=== PATIENT | male | born 1965 | race Caucasian/White ===

== ENCOUNTER 2020-04-23 13:16 | Emergency (ER) | payer BC, SELFPAY ==
[2020-04-23 13:17] VITALS: BP 130/94; PULSE 85; RESP 16; TEMP 36.8; O2SAT 98; BMI 30.4
[2020-04-23 13:19] VITALS: BMI 30.4
--- NOTE | 2020-04-23 13:20 | XR_ITS ---
PROCEDURE: XR HUMERUS LT CLINICAL INDICATION: injury Posttraumatic pain COMPARISON: No exams were available for comparison FINDINGS: No fracture or dislocation. No lytic or blastic change. There is normal mineralization. The joint spaces are well-preserved. No significant degenerative/arthritic changes. No erosive changes evident. Other findings:None. IMPRESSION: No acute findings. Dictated by: Chato Navarro MD 04/23/2020 15:01 Chato Navarro MD in [place] 04/23/2020 15:01
--- NOTE | 2020-04-23 13:20 | XR_ITS ---
PROCEDURE: XR HAND LT MIN 3V CLINICAL INDICATION: injury Posttraumatic pain COMPARISON: No exams were available for comparison FINDINGS: There is an oblique fracture involving the distal aspect of the 2nd metacarpal at the metaphyseal diaphyseal junction. There is some soft tissue gas lateral to this region suggesting an fracture. In addition, there is a comminuted fracture involving the distal shaft of the proximal phalanx of the with mild distraction of the fracture fragments by 4 mm and mild dorsal displacement of the distal fracture fragment by 4 mm. There is a small foreign body in the thenar eminence dorsally measuring 3 mm. The joint spaces are well-preserved. No significant degenerative/arthritic changes. No erosive changes evident. Other findings:None. IMPRESSION: Comminuted oblique nondisplaced fracture of the distal aspect of the 2nd metacarpal with comminuted mildly displaced transverse fracture of the distal aspect of the proximal phalanx of the thumb with soft tissue gas suggesting open fractures and with a foreign body dorsally at the thenar eminence Dictated by: Chato Navarro MD 04/23/2020 15:10 Chato Navarro MD in [place] 04/23/2020 15:10
--- NOTE | 2020-04-23 13:20 | XR_ITS ---
PROCEDURE: XR FOREARM LT 2V CLINICAL INDICATION: injury Posttraumatic pain COMPARISON: No exams were available for comparison FINDINGS: There is a well-circumscribed lucency at the base of the ulnar styloid process consistent with either an old ununited fracture or accessory center of ossification. No acute fracture or dislocation evident. Other findings:None. IMPRESSION: No acute findings. Dictated by: Chato Navarro MD 04/23/2020 15:06 Chato Navarro MD in [place] 04/23/2020 15:06
--- NOTE | 2020-04-23 13:20 | XR_ITS ---
PROCEDURE: XR SHOULDER LT MIN 2V CLINICAL INDICATION: injury Posttraumatic pain COMPARISON: No exams were available for comparison FINDINGS: No fracture or dislocation. No lytic or blastic change. There is normal mineralization. Minimal osteoarthritic change of the glenohumeral joint. There appears to be old left 2nd 3rd and 4th rib fracture. Other findings:None. IMPRESSION: No acute findings. Dictated by: Chato Navarro MD 04/23/2020 15:03 Chato Navarro MD in [place] 04/23/2020 15:03
--- NOTE | 2020-04-23 13:35 | HMH.EDGENADL ---
ED Disposition Clinical Impression: Fracture of thumb, left, open Qualifiers: Encounter type: initial encounter Phalanx: proximal Fracture alignment: displaced Qualified Code(s): S62.512B - Displaced fracture of proximal phalanx of left thumb, initial encounter for open fracture First metacarpal bone fracture Qualifiers: Encounter type: initial encounter Fracture type: closed Metacarpal location: other portion of metacarpal Fracture alignment: nondisplaced Laterality: left Qualified Code(s): S62.292A - Other fracture of first metacarpal bone, left hand, initial encounter for closed fracture Disposition: Home, Self-Care Condition on Discharge: Fair Instructions: DI for Finger Fracture Additional Instructions: You have been evaluated for an open thumb fracture and metacarpal fracture. Please keep splint clean and dry and in place. Take Kelfex as prescribed. Take Tylenol for pain. Lincoln for extreme pain. Follow-up with Dr. Saldana at the [facility] plastics hand surgery clinic on Saturday. Report to the office at 8 AM. Return to the emergency department if you have any new or worsening pain, numbness or tingling in your fingers. [address], [place] [id number] Call [phone] Call [phone] Saturday - Saturday: 8 a.m. - 5 p.m. Prescriptions: cephALEXin [cephALEXin 500mg capsule*] 500 mg PO Q6H 5 Days #20 cap Transmission Status: Pending to [id number] Referrals: PCP,No [Primary Care Provider] - Time of Disposition: 18:05 - Critical Care Critical Care Time: No Attestation: On , the high probability of a clinically significant, sudden or life threatening deterioration of the following system(s) required my full and direct attention, intervention and personal management. The time I documented below is in addition to time spent performing reported procedures but includes the following listed in this critical care notation. Medical Decision Making - Medical Records Medical records reviewed: Yes: I reviewed the patient's medical records. - Tom Inquiry Pt receiving controlled substance: Yes Tom was queried for this patient: No Reason not queried -: Emergent pt cond-no time Risks and benefits of using a controlled substance: were discussed with pt by me Vital Signs: 04/23/20 13:17 04/23/20 14:08 04/23/20 14:47 Temperature 98.2 F Temperature Source Oral Pulse Rate Pulse Rate [Right] 85 73 86 Respiratory Rate 16 16 16 Blood Pressure Blood Pressure [Right Arm] 130/94 H 113/70 Blood Pressure Mean [Right Arm] 106 84 Blood Pressure Source Blood Pressure Source [Right Arm] Automatic Cuff Automatic Cuff Blood Pressure Position Blood Pressure Position [Right Arm] Sitting Sitting 02 Sat by Pulse Oximetry 98 98 96 Oxygen Delivery Method Room Air Room Air Room Air 04/23/20 15:48 04/23/20 17:37 Temperature 98.5 F Temperature Source Oral Pulse Rate 70 Pulse Rate [Right] 82 Respiratory Rate 16 Blood Pressure 120/72 Blood Pressure [Right Arm] 125/85 Blood Pressure Mean [Right Arm] 98 Blood Pressure Source Automatic Cuff Blood Pressure Source [Right Arm] Automatic Cuff Blood Pressure Position Sitting Blood Pressure Position [Right Arm] Supine 02 Sat by Pulse Oximetry 95 Oxygen Delivery Method Room Air Room Air - Lab Data Lab Results 04/23/20 13:23: WBC 11.9 H, RBC 4.61, Hgb 14.4, Hct 41.9 L, MCV 90.9, MCH 31.2, MCHC 34.3, RDW 13.1, Plt Count 401, MPV 9.7, Neut % (Auto) 44.9, Lymph % (Auto) 47.6, Collin % (Auto) 5.8, Eos % (Auto) 1.1, Baso % (Auto) 0.7, Neut # (Auto) 5.3, Lymph # (Auto) 5.6 H, Collin # (Auto) 0.7, Eos # (Auto) 0.1, Baso # (Auto) 0.1 04/23/20 13:23: Sodium 135 L, Potassium 4.0, Chloride 102, Carbon Dioxide 23, Anion Gap 14.0, BUN 11, Creatinine 0.90, Estimated Creat Clear 119, Estimated GFR 88, Est GFR ( Amer) 106, Glucose 279 H, Calcium 9.6, Total Bilirubin 0.7, AST 261 H, ALT 376 H*, Alkaline
[2020-04-23 14:08] VITALS: PULSE 73; RESP 16; O2SAT 98
[2020-04-23 14:47] VITALS: BP 113/70; PULSE 86; RESP 16; O2SAT 96
--- NOTE | 2020-04-23 15:21 | XR_ITS ---
PROCEDURE: XR CHEST PORTABLE CLINICAL HISTORY: pre-op COPD, smoker COMPARISON: No exams were available for comparison FINDINGS: The cardiomediastinal silhouette and pulmonary vascularity are within normal limits. There is slight increased density in the left midlung possibly due to summation. Upright PA and lateral chest may confirm. Cannot exclude underlying parenchymal disease. No acute bony abnormalities. IMPRESSION: Patchy density left midlung which could be due to artifact or mild atelectasis or infiltrate Dictated by: Chato Navarro MD 04/23/2020 22:21 Chato Navarro MD in [place] 04/23/2020 22:21
--- NOTE | 2020-04-23 15:22 | PC.NURSE ---
Dr. Bernardino roldan
[2020-04-23 15:26] LABS: Basophils # 0.1 K/mm3 (0-0.2); Basophils % 0.7 % (0.1-2.0); Eosinophils # 0.1 K/mm3 (0.0-0.4); Eosinophils % 1.1 % (0.1-12.0); Hematocrit 41.9 % (42.0-52.0); Hemoglobin 14.4 g/dL (14.1-18.0); Lymphocytes # 5.6 K/mm3 (0.7-4.5); Lymphocytes % 47.6 % (10-50); Mean Corpuscular HGB Conc 34.3 g/dL (31.8-35.4); Mean Corpuscular Hemoglobin 31.2 pg (27.0-31.2); Mean Corpuscular Volume 90.9 fl (80-94); Mean Platelet Volume 9.7 fl (7.4-10.4); Monocytes # 0.7 K/mm3 (0.1-1.0); Monocytes % 5.8 % (1.7-9.3); Neutrophils # 5.3 K/mm3 (1.8-7.8); Neutrophils % 44.9 % (37.0-80.0); Platelet Count 401 K/mm3 (142-424); Red Blood Count 4.61 M/mm3 (4.60-6.20); Red Cell Distribution Width 13.1 % (11.5-17.5); White Blood Count 11.9 K/mm3 (4.8-10.8)
[2020-04-23 15:28] LABS: Chloride 102 mmol/L (98-107); Sodium 135 mmol/L (136-145)
--- NOTE | 2020-04-23 15:29 | ECG_ITS ---
APPROVED REPORT Exam: Resting ECG HR:80 bpm ECG Measurements Heart Rate 80 AXES GA 160 P 50 QRSd 82 QRS 52 QT 380 T 43 QTc 438 <Conclusion> Normal sinus rhythm Normal ECG Electronically signed by : Jaswinder Dent, 04/24/2020 06:03:17
[2020-04-23 15:31] LABS: Alanine Aminotransferase 376 U/L (12-78); Albumin Level 3.9 g/dl (3.5-5.0); Albumin/Globulin Ratio 1.1 (1.1-1.8); Alkaline Phosphatase 90 U/L (38-126); Aspartate Amino Transferase 261 U/L (17-59); Bilirubin,Total 0.7 mg/dl (0.2-1.3); Blood Urea Nitrogen 11 mg/dl (9-20); Carbon Dioxide 23 mmol/L (22.0-30.0); Creatinine Clearance Estimated 119 mL/min (50-200); Estimated Glomerular Filt Rate 88 ml/min (>60); GFR (African American) 106 ML/MIN (>60); Globulin 3.4 g/dL (1.3-3.2); Total Protein,Serum 7.3 g/dl (6.3-8.2)
[2020-04-23 15:32] LABS: Calcium 9.6 mg/dl (8.4-10.2); Glucose 279 mg/dl (74-100)
--- NOTE | 2020-04-23 15:38 | PC.NURSE ---
speaking with Dr. Villa
--- NOTE | 2020-04-23 15:41 | PC.NURSE ---
Calling [facility]
--- NOTE | 2020-04-23 15:44 | PC.NURSE ---
ED SPEAKING TO DR RODRÍGUEZ AT THIS TIME
[2020-04-23 15:48] VITALS: BP 125/85; PULSE 82; O2SAT 95
[2020-04-23 16:36] LABS: Coronavirus 19 IgG Antibody Negative (Negative); Coronavirus 19 IgM Antibody Negative (Negative)
[2020-04-23 17:37] VITALS: BP 120/72; PULSE 70; RESP 16; TEMP 36.9; O2SAT 100
--- NOTE | 2020-04-23 17:41 | PC.NURSE ---
Went in with MD and numbed patient's hand and cleaned with hand cleaner carpet and upholstery. MD placed one stitch in the top of the hand and we placed a thumb spica with ulnar gutter splint on patient. Pt tolerated procedure well.
== END 2020-04-23 18:11 | disposition home or self-care (01) ==
PROVIDERS: Emergency Provider Emergency Medicine
DX: S62.512B Displaced fracture of proximal phalanx of left thumb, initial encounter for open fracture (principal); S61.412A Laceration without foreign body of left hand, initial encounter; W20.8XXA Other cause of strike by thrown, projected or falling object, initial encounter; Y92.018 Other place in single-family (private) house as the place of occurrence of the external cause; Z23 Encounter for immunization; Z20.828 Contact with and (suspected) exposure to other viral communicable diseases; F17.210 Nicotine dependence, cigarettes, uncomplicated
CPT/HCPCS: 12001; 29125; 71045; 73030; 73060; 73090; 73130; 80053; 85025; 86328; 90471; 90714; 93005; 96365; 96372; 96376; 99285

== ENCOUNTER 2020-04-24 17:52 | Emergency (ER) | payer BC, SELFPAY ==
[2020-04-24 17:57] VITALS: BP 132/77; PULSE 98; RESP 16; TEMP 36.9; O2SAT 100; BMI 32.3
--- NOTE | 2020-04-24 18:10 | HMH.EDGENADL ---
ED Disposition Clinical Impression: Left hand fracture Qualifiers: Encounter type: initial encounter Fracture type: open Qualified Code(s): S62.92XB - Unspecified fracture of left wrist and hand, initial encounter for open fracture Disposition: Home, Self-Care Condition on Discharge: Fair Instructions: DI for a Hand Fracture, How to Take Care of Your Splint Additional Instructions: Percocet for pain. Keep elevating your hand and keep splint on. Follow-up at [facility] hand surgery clinic tomorrow as scheduled. Additional instructions for CONTROLLED SUBSTANCES: You have been prescribed a medication that is a controlled substance. Controlled substances include pain medications known as opiates and sedative nerve medications known as benzodiazepines. Tramadol, fioricet, and gabapentin are also controlled substances. Some common opiates include: Codeine (such as Tylenol #3) Hydrocodone (Vicodin, Lortab, Lorcet, Callahan) Oxycodone (Percocet, Percodan, Oxycodone, Oxy IR) Some common benzodiazepines include: Diazepam (Valium) Lorazepam (Ativan) Alprazolam (Xanax) Clonazepam (Klonopin) Oxazepam (Serax) All of these controlled substances are highly addictive and frequently abused. Misuse can and frequently does lead to addiction as well as overdose and . Medication should be stored in a locked cabinet or other secure storage unit. Do not store the medication in a motor vehicle. Short term supplies, 3 days or less, are prescribed because of the highly addictive nature of the medication. Any of the controlled substance medication NOT taken should be disposed of properly and NOT SAVED. The recommended method of disposing of unused medications is: Place the medicines in a sealable plastic bag. If the medicine is a solid, crush it or add water to dissolve it. Add something undesirable (cat litter, coffee grounds, etc.) Dispose of sealed bag in household trash Do not flush or pour unused medicines down a sink or drain. Controlled substances should not be shared, given away or sold. Because of the addictive nature and frequent abuse, these medications are sometimes stolen. These medications should be kept in a safe place where they cannot be stolen. Do not keep them in your car or purse. Lost or stolen prescriptions for controlled substances WILL NOT BE REFILLED in this emergency department, regardless of whether a police report was filed. Prescriptions: Oxycodone HCl/Acetaminophen [Percocet 10-325 mg Tablet] 1 tab PO Q6H PRN #20 tab PRN Reason: Severe Pain Referrals: PCP,No [Primary Care Provider] - - Critical Care Critical Care Time: No Attestation: On 04/24/20, the high probability of a clinically significant, sudden or life threatening deterioration of the following system(s) required my full and direct attention, intervention and personal management. The time I documented below is in addition to time spent performing reported procedures but includes the following listed in this critical care notation. Medical Decision Making - Tom Inquiry Pt receiving controlled substance: Yes Tom was queried for this patient: No Reason not queried -: Emergent pt cond-no time Risks and benefits of using a controlled substance: were discussed with pt by me Vital Signs: 04/24/20 17:57 Temperature 98.4 F Temperature Source Oral Pulse Rate [Right] 98 H Respiratory Rate 16 Blood Pressure [Right Arm] 132/77 Blood Pressure Mean [Right Arm] 95 Blood Pressure Source [Right Arm] Automatic Cuff Blood Pressure Position [Right Arm] Sitting 02 Sat by Pulse Oximetry 100 Oxygen Delivery Method Room Air Orders (Tests/Meds): ED MEDICATIONS Discontinued Medications Generic Name Dose Route Start Last Admin Trade Name Freq PRN Reason Stop Dose Admin Hydromorphone HCl 2 mg 04/24/20 18:10 04/24/20 18:19 Dilaudid 2mg/Ml Syringe IM 04/24/20 18:11 2 mg ONCE ONE Administration
[2020-04-24 18:41] VITALS: BP 128/70; PULSE 87; RESP 16; TEMP 36.8; O2SAT 98
== END 2020-04-24 18:42 | disposition home or self-care (01) ==
PROVIDERS: Emergency Provider Emergency Medicine
DX: M79.642 Pain in left hand (principal); S62.512G Displaced fracture of proximal phalanx of left thumb, subsequent encounter for fracture with delayed healing; F17.210 Nicotine dependence, cigarettes, uncomplicated
CPT/HCPCS: 96372; 99281; J2405

== ENCOUNTER 2020-10-03 12:30 | Emergency (ER) | payer BC, SELFPAY ==
[2020-10-03 12:32] VITALS: BP 139/75; PULSE 90; RESP 19; TEMP 36.9; O2SAT 96; BMI 32.3
[2020-10-03 13:02] VITALS: BP 103/60; PULSE 88; RESP 18; O2SAT 97
--- NOTE | 2020-10-03 13:10 | CT_ITS ---
PROCEDURE: CT ABDOMEN PELVIS WO CON CLINICAL INDICATION: incisional hernia Severe mid abdominal pain COMPARISON: CT CT ABDOMEN PELVIS W CON from 11/07/2019 TECHNIQUE: Axial images obtained with sagittal and coronal reformats. All CT scans at the facility use one or more dose reduction, viz: automated exposure control, ma/kV adjustment per patient size (including targeted exams where dose is matched to indication, i.e. head), or iterative reconstruction technique. FINDINGS: LOWER THORAX: Minimal nodularity noted in the right minor fissure. There is a 4 mm nodule in the right lower lobe unchanged. An additional 5 mm nodules present in the right lung base laterally previously measuring 4 mm. There is a 5 mm nodule in the right lower lobe along the hemidiaphragm slightly larger. ABDOMEN & PELVIS: Gallbladder slightly distended. The liver has an unremarkable appearance. There is history of prior splenic surgery. There are 2 rounded areas of soft tissue attenuation in the left upper quadrant and may be related to hypertrophy splenules measuring 5 and 4 cm. Left adrenal gland is slightly enlarged but maintains an adrenal form shape. No renal or ureteral calculi. Scattered small nodes are present in the epigastric region. There is a small right para ventral abdominal wall hernia containing fat. There is some haziness of the fat within the hernia which could be due to some mild underlying inflammation. As noted previously along the orifice of the hernia there is a soft tissue density measuring 12 mm which could be due to small intra-abdominal lymph node. No intestinal obstruction or free air. The bowel gas pattern is nonspecific with a few air-fluid levels noted in the left lower quadrant there has been a prior appendectomy. No evidence of diverticulitis. Coarse calcifications are present within the prostate. Degenerative changes are present in the spine. Scattered small nodes are present in the inguinal regions. IMPRESSION: 1. Overall no significant change with no acute finding. 2. There is scattered nondistended fluid-filled small bowel loops with a few air-fluid levels nonspecific but may indicate enteritis/ileus. 3. Small right para ventral abdominal wall hernia containing fat not significantly changed. 4. There are at least 2 nodules in the right lung base which are slightly larger compared to the previous exam. 5. Other nonacute findings as described above. Dictated by: Chato Navarro MD 10/03/2020 14:23 Chato Navarro MD in [place] 10/03/2020 14:23
--- NOTE | 2020-10-03 13:13 | HMH.EDGENADL ---
ED Disposition Clinical Impression: Hernia Disposition: Home, Self-Care Condition on Discharge: Good Instructions: DI for Ventral Hernia Referrals: Vadim Miller MD [Staff Physician] - 3 days - Critical Care Critical Care Time: No Attestation: On 10/03/20, the high probability of a clinically significant, sudden or life threatening deterioration of the following system(s) required my full and direct attention, intervention and personal management. The time I documented below is in addition to time spent performing reported procedures but includes the following listed in this critical care notation. Medical Decision Making - Medical Records Medical records reviewed: Yes: I reviewed the patient's medical records. - Tom Inquiry Pt receiving controlled substance: No Vital Signs: 10/03/20 12:32 10/03/20 13:02 10/03/20 13:30 Temperature 98.4 F Temperature Source Oral Pulse Rate [Left Radial] 90 88 85 Respiratory Rate 19 18 Blood Pressure [Right Arm] 139/75 103/60 L 133/75 Blood Pressure Mean [Right Arm] 96 74 94 Blood Pressure Source [Right Arm] Automatic Cuff Automatic Cuff Automatic Cuff Blood Pressure Position [Right Arm] Sitting Supine Sitting 02 Sat by Pulse Oximetry 96 97 100 Oxygen Delivery Method Room Air Room Air Room Air Orders (Tests/Meds): ORDERS Category Date Time Status CMP [Comprehensive Metabolic Panel] Stat Lab 10/03/20 13:10 Ordered Complete Blood Count Auto Diff Stat Lab 10/03/20 13:10 Ordered Lactic Acid Stat Lab 10/03/20 13:10 Ordered - CT Data CT Scan: Abdomen, Pelvis Time Received: 14:32 Findings Narrative: IMPRESSION: 1. Overall no significant change with no acute finding. 2. There is scattered nondistended fluid-filled small bowel loops with a few air-fluid levels nonspecific but may indicate enteritis/ileus. 3. Small right para ventral abdominal wall hernia containing fat not significantly changed. 4. There are at least 2 nodules in the right lung base which are slightly larger compared to the previous exam. 5. Other nonacute findings as described above. Medical Decision Narrative: Patient with hernia largely unchanged. No signs of obstruction, perforation, incarcerated or strangulated hernia. Advise close follow-up with general surgery for further management. General Adult HPI - General Chief complaint: PAIN Stated complaint: Knot on Stomach/Pain Time Seen by Provider: 10/03/20 13:13 Mode of Arrival: Ambulatory Limitations: No Limitations Description of Symptoms (Recalled from ER Triage Doc. by RN): c/o knot in middle abdomen for a year and half, last night it began to hurt with no appetite. Denies any pain when he eats or drinks. - History of Present Illness HPI narrative: This is a 55-year-old male who presents to the emergency department for mid abdominal pain where he has a hernia. 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 Last night it started to hurt however. No vomiting or diarrhea and he has had normal bowel habits. He was concerned because typically the mass is not painful. He does a lot of heavy lifting for work, lifted heavy objects yesterday and states now his hernia hurts him more. No fevers. Normal urinary habits. - Related Data Previous Rx's Medication Instructions Recorded Acyclovir [Acyclovir 800mg tab] 800 mg PO 5XDAY 7 Days #35 tab 10/11/19 Famotidine [Pepcid 20mg Tablet] 20 mg PO BID #60 tab 11/07/19 Psyllium Husk/Aspartame [Metamucil 3.4 gm PO BID #30 powd.pack 11/07/19 Fiber Singles Packet] polyethylene glycoL 3350 [Miralax 17 gm PO DAILYP PRN #10 packet 11/07/19 17gm Packet] cephALEXin [cephALEXin 500mg 500 mg PO Q6H 5 Days #20 cap 04/23/20 capsule*] Oxycodone HCl/Acetaminophen 1 tab PO Q6H PRN #20 tab 04/24/20 [Percocet 10-325 mg Tablet] Allergies Allergy/AdvReac Type S
[2020-10-03 13:30] VITALS: BP 133/75; PULSE 85; O2SAT 100
[2020-10-03 14:30] VITALS: BP 115/64; PULSE 76; O2SAT 95
[2020-10-03 15:05] VITALS: BP 127/79; PULSE 89; RESP 20; TEMP 36.9; O2SAT 97
== END 2020-10-03 15:10 | disposition home or self-care (01) ==
PROVIDERS: Emergency Provider Emergency Medicine
DX: K46.9 Unspecified abdominal hernia without obstruction or gangrene (principal); F17.210 Nicotine dependence, cigarettes, uncomplicated
CPT/HCPCS: 74176; 99283

== ENCOUNTER → 2020-10-05 10:26 | Outpatient (CLI) | payer BC, MEDICAID, SELFPAY ==
[2020-10-05 10:30] LABS: Microscopic, Urine URINE MICROSCOPIC (MICROSCOPIC)
[2020-10-05 10:54] LABS: Appearance,Urine CLEAR (Clear); Bilirubin,Urine Negative (Negative); Blood, Urine Negative (Negative); Color,Urine YELLOW (Yellow); Glucose,Urine (UA) 1+ (Negative); Ketones,Urine Negative (Negative); Leukocyte Esterase,Urine Negative (Negative); Nitrate,Urine Negative (Negative); Protein,Urine Negative (Negative); Specific Gravity, Urine >= 1.030 (1.005-1.030); Urobilinogen,Urine 0.2 EU/dl (0.2)
[2020-10-05 10:59] LABS: Basophils # 0.1 K/mm3 (0-0.2); Basophils % 1.1 % (0.1-2.0); Eosinophils # 0.3 K/mm3 (0.0-0.4); Eosinophils % 2.7 % (0.1-12.0); Hematocrit 51.5 % (42.0-52.0); Hemoglobin 16.6 g/dL (14.1-18.0); Lymphocytes # 3.9 K/mm3 (0.7-4.5); Lymphocytes % 31.4 % (10-50); Mean Corpuscular HGB Conc 32.3 g/dL (31.8-35.4); Mean Corpuscular Hemoglobin 30.4 pg (27.0-31.2); Mean Platelet Volume 8.2 fl (7.4-10.4); Monocytes # 1.1 K/mm3 (0.1-1.0); Monocytes % 8.6 % (1.7-9.3); Neutrophils % 56.2 % (37.0-80.0); Platelet Count 429 K/mm3 (142-424); Red Blood Count 5.48 M/mm3 (4.60-6.20); Red Cell Distribution Width 14.2 % (11.5-17.5); White Blood Count 12.4 K/mm3 (4.8-10.8)
[2020-10-05 11:23] LABS: Anion Gap 9.6 mEq/L (5-15); Blood Urea Nitrogen 13 mg/dl (9-20); Calcium 9.8 mg/dl (8.4-10.2); Carbon Dioxide 27 mmol/L (22.0-30.0); Chloride 105 mmol/L (98-107); Estimated Glomerular Filt Rate 117 ml/min (>60); GFR (African American) 141 ML/MIN (>60); Glucose 148 mg/dl (74-100); Potassium 4.6 mmoL/L (3.5-5.1); Sodium 137 mmol/L (136-145)
[2020-10-05 11:28] LABS: Squamous Epithelial Cell,Urine Occasional #/hpf (0-5)
[2020-10-05 11:37] LABS: Coronavirus 19 IgG Antibody Positive (Negative); Coronavirus 19 IgM Antibody Negative (Negative)
== END ==
PROVIDERS: Visit Provider Surgery
DX: Z01.812 Encounter for preprocedural laboratory examination (principal); Z20.822 Contact with and (suspected) exposure to COVID-19; Z86.16 Personal history of COVID-19; K46.9 Unspecified abdominal hernia without obstruction or gangrene
CPT/HCPCS: 36415; 80048; 81001; 85025; 86328

== ENCOUNTER 2020-10-06 09:49 | Day surgery (SDC) | payer BC, SELFPAY ==
[2020-10-06] VITALS (13 sets, daily range): BP systolic 121–143; BP diastolic 63–100; PULSE 85–100; RESP 12–20; TEMP 36.4–43; O2SAT 88–100; BMI 32.3
--- NOTE | 2020-10-06 12:25 | P.PN_ITS ---
[facility] Anesthesia Checklist - Structural Data Admitted From: Home Planned Operative Procedure/s: incisional hernia repair Consent for Planned Operative Procedure(s) Verified: Yes - Additional verifications Anesthesia Reactions: No Hx Blood Transfusions: No Blood Transfusion Reaction: No - Airway Assessment C-Spine Mobility Assessed: Yes TMJ Mobility Assessed: Yes Dentition: Poor Dentition - Neurological Assessment Level of Consciousness: Awake, Alert, Appropriate - Anesthesia Plan Anesthesia Risk discussed: Yes Anesthesia Plan: Verified ASA Class: III Anesthesia Type: General [facility] History I have reviewed the patient's past medical history: Yes Medical History: Denies:: Cancer, Diabetes Mellitus Type 1, Diabetes Mellitus Type 2, MRSA, Seizures *Have you ever received a pneumonia vaccine?: No *Have you received a flu vaccine this season?: No Other Medical History: Denies: Blood Transfusion Reaction Anesthesia experience/problems:: none Other Surgeries: Yes: Splenectomy Amputation: No Fractures: No - *Social History Smoking Status: Current every day smoker Tobacco Type: cigarettes # Packs/Day (cigarettes): 1 Alcohol Intake: never Substance Use Type: denies use *Occupational Status:: employed *Travel in the last 8 weeks: None Family Hx:: No significant family history
--- NOTE | 2020-10-06 13:18 | HMH.OPNOTE ---
Date of procedure: 10/06/20 Pre-op Diagnosis:: Incisional hernia in mid upper abdomen Post-op Diagnosis:: Same Procedure performed:: Laparoscopic-assisted open repair of incisional hernia (no mesh) Surgeon:: Vadim Miller MD PURCHASING ADMINISTRATIVE ASSISTANT:: Keron Lozano Anesthesia: GETA Estimated blood loss (mL): 15 Operative findings:: Fingertip defect just to the right of the midline (between umbilicus and xiphoid) Large portion of omentum incarcerated within hernia with changes consistent with early ischemia Primary repair with 0 Ethibond completed (no mesh) Operative note:: After informed consent was obtained the patient was taken to the operating room and placed in the supine position. General anesthesia was induced and his abdomen was prepped and draped in a sterile fashion. After infiltration with local anesthetic a left upper quadrant stab incision was made. The Veress needle was placed in position. The abdomen was insufflated. A 5 mm optical trocar was placed in the left mid flank. An additional 5 mm trocar was placed at the original Veress needle site and an additional 5 mm trochars placed in the left lower flank. Significant adhesions between the anterior abdominal wall and omentum were immediately noted. Careful blunt dissection was utilized to free the omentum as the hernia was approached. The hernia which was between the umbilicus and xiphoid (just to the right of midline) had a very large portion of incarcerated omentum that was carefully taken down bluntly. Early ischemic changes noted. Once the incarcerated omentum was free a small defect was noted. The decision to forego mesh secondary to the ischemic changes was made. An incision was made directly over the herniation and the fascia/hernia was closed with interrupted 0 Ethibond. All wounds were irrigated and skin was closed with marcy. Dressings were applied and the patient was transferred to recovery in stable condition. Condition: stable Disposition: PACU Specimens:: None Complications:: no immediate
--- NOTE | 2020-10-06 13:28 | HMH.ANESI ---
[facility] Anesthesia Record Part I Intake, IV Amount: 1,500 Estimated blood loss (mL): 0 Urine output (mL): 0 Blood Pressure: 140/100 SaO2: 95 Pulse Rate: 100 Respiratory Rate: 12 Temperature: 97.5 F Patient is:: Awake, Stable Stable to PACU at:: 13:25
--- NOTE | 2020-10-06 14:10 | PC.NURSE ---
PT O2 SATS GO INTO 80'S WHEN NOT DEEP BREATHING. LUNGS ARE FULL OF RHONCI AND WHEEZES. ENCOURAGED USE OF IS AND PT ABLE TO DEMONSTRATE GOOD USE.
--- NOTE | 2020-10-06 14:50 | SUR.PHASEII ---
KELLY RILEY LINE STAKER TO BEDSIDE, REPORTS PT LOOKS BETTER AND IS SATISFIED WITH PT STATUS.
--- NOTE | 2020-10-06 15:00 | PC.NURSE ---
LUNGS STILL HAVE WHEEZES AND RHONCI T/O BUT IS IMPROVED AFTER NEB TREATMENT. PT IN LOW 90'S SATS. ENCOURAGED TO COUGH AND DEEP BREATH AND USE IS AT HOME. TO CALL FAMILY MD OR COME TO ER IF SOA REOCCURS. VERBALIZES UNDERSTANDING.
--- NOTE | 2020-10-07 16:35 | P.PN_ITS ---
[facility] Anesthesia Record Part II Discharge Time: 14:07 Destination: Surgical Day Care (OP Surgery) PACU nurse assessment reviewed?: Yes Patient Condition:: Good Anesthesia Complications:: None Swallowing reflex intact?: Yes Cyanosis?: No Blood Pressure: 121/70 Pulse Rate: 91 Temperature: 97.6 F Mental Status: Alert & Oriented Pain level:: 4 Nausea and/or vomitting:: None Intake, IV Amount: 0
[2020-10-07 16:36] VITALS: BP 121/70; PULSE 91; TEMP 36.4
== END 2020-10-06 15:05 | disposition home or self-care (01) ==
LOC: OR 09:54
PROVIDERS: Visit Provider Surgery
PROC: (CPT 49650; principal; 2020-10-06 11:30)
DX: K43.2 Incisional hernia without obstruction or gangrene (principal); K66.0 Peritoneal adhesions (postprocedural) (postinfection); Z72.0 Tobacco use; Z90.81 Acquired absence of spleen
CPT/HCPCS: 49561; 49568; 94640; 96374; J2405; J2710

== ENCOUNTER 2021-01-15 10:35 | Emergency (ER) | payer BC, SELFPAY ==
[2021-01-15 10:35] VITALS: BP 120/85; PULSE 96; RESP 20; TEMP 36.6; O2SAT 100; BMI 32.3
[2021-01-15 10:37] VITALS: BP 120/85; PULSE 105; RESP 20; O2SAT 97
--- NOTE | 2021-01-15 10:39 | ECG_ITS ---
APPROVED REPORT Exam: Resting ECG HR:104 bpm ECG Measurements Heart Rate 104 AXES NV 160 P 61 QRSd 86 QRS 52 QT 374 T 36 QTc 491 Conclusion Sinus tachycardia Otherwise normal ECG Electronically signed by : Jaswinder Dent, 01/15/2021 16:38:07
--- NOTE | 2021-01-15 10:45 | [facility].EDGENADL ---
ED Disposition Clinical Impression: Opiate overdose Qualifiers: Encounter type: initial encounter Injury intent: accidental or unintentional Qualified Code(s): T40.601A - Poisoning by unspecified narcotics, accidental (unintentional), initial encounter Disposition: Left Against Medical Advice Condition on Discharge: Good - Critical Care Critical Care Time: No Attestation: On , the high probability of a clinically significant, sudden or life threatening deterioration of the following system(s) required my full and direct attention, intervention and personal management. The time I documented below is in addition to time spent performing reported procedures but includes the following listed in this critical care notation. Medical Decision Making - Tom Inquiry Pt receiving controlled substance: No Vital Signs: 01/15/21 10:35 Temperature 97.9 F Temperature Source Oral Pulse Rate [Left Radial] 96 H Respiratory Rate 20 Blood Pressure [Right Arm] 120/85 Blood Pressure Mean [Right Arm] 96 Blood Pressure Source [Right Arm] Automatic Cuff Blood Pressure Position [Right Arm] Sitting 02 Sat by Pulse Oximetry 100 Oxygen Delivery Method Room Air - Lab Data Lab Results 01/15/21 10:41: WBC 12.6 H, RBC 5.29, Hgb 15.5, Hct 51.3, MCV 97.0 H, MCH 29.3, MCHC 30.3 L, RDW 12.6, Plt Count 372, MPV 8.3, Neut % (Auto) 47.8, Lymph % (Auto) 42.7, [place] % (Auto) 7.0, Eos % (Auto) 1.4, Baso % (Auto) 1.1, Neut # (Auto) 6.0, Lymph # (Auto) 5.4 H, [place] # (Auto) 0.9, Eos # (Auto) 0.2, Baso # (Auto) 0.1 01/15/21 10:41: Sodium 134 L, Potassium 3.5, Chloride 100, Carbon Dioxide 23, Anion Gap 14.5, BUN 13, Creatinine 0.90, Estimated Creat Clear 118, Estimated GFR 87, Est GFR ( Amer) 106, Glucose 335 H, Calcium 9.4 Result diagrams: 01/15/21 10:41 01/15/21 10:41 Orders (Tests/Meds): ORDERS Category Date Time Status Basic Metabolic Panel Stat Lab 01/15/21 10:41 Results Drug Screen,Urine Stat Lab 01/15/21 10:49 Ordered Ethanol [Ethyl Alcohol] Stat Lab 01/15/21 10:41 Received Troponin I Q3H Lab 01/15/21 14:00 Ordered Troponin I Q3H Lab 01/15/21 17:00 Ordered Troponin I Stat Lab 01/15/21 10:41 Results Urinalysis and Microscopic Stat Lab 01/15/21 10:49 Ordered - ECG Data Tracing #1 EKG interpreted by Mitesh Alamo MD: Rhythm: sinus tachycardia Rate: 104 [place]: normal Ectopy: none Conduction: normal ST Segment Changes: none T Wave Changes: none Q Waves: none No evidence of acute ischemia or injury Medical Decision Narrative: 11:10 AM: Nurse reports patient signed out AGAINST MEDICAL ADVICE, stating I am wasting your time in my time . General Adult HPI - General Stated complaint: Overdose Time Seen by Provider: 01/15/21 10:40 - History of Present Illness HPI narrative: Brought in by ambulance for an overdose. Reportedly found in his car lips purple, eyes rolled back. Administered Narcan twice prior to arrival and awakened after the second dose. He says he does not know what he used. He says he snorted something but does not know what it was. States he uses it seldom . Denies using any other drugs or drinking alcohol. States that he has a history of drug use in the past and has been through rehab. States he has not recently been ill, was feeling fine prior to the drug use and says he now feels fine again. No suicidal intent. - Related Data Allergies Allergy/AdvReac Type Severity Reaction Status Date / Time No Known Allergies Allergy Verified 10/19/20 14:21 [facility] History - Hepatitis A Screen Attestation statement:: This patient has been screened for Hepatitis A risk factors. I have reviewed the patient's past medical history: Yes Medical History: Denies:: Cancer, Diabetes Mellitus Type 1, Diabetes Mellitus Type 2, MRSA, Seizures Other Medical History: Denies: Blood Transfusion Reaction Other Surgeries: Yes: Hernia Repair, Splenectomy Amputation: No Fractures: No
[2021-01-15 10:58] LABS: Basophils # 0.1 K/mm3 (0-0.2); Basophils % 1.1 % (0.1-2.0); Eosinophils # 0.2 K/mm3 (0.0-0.4); Eosinophils % 1.4 % (0.1-12.0); Hematocrit 51.3 % (42.0-52.0); Hemoglobin 15.5 g/dL (14.1-18.0); Lymphocytes # 5.4 K/mm3 (0.7-4.5); Lymphocytes % 42.7 % (10-50); Mean Corpuscular HGB Conc 30.3 g/dL (31.8-35.4); Mean Corpuscular Hemoglobin 29.3 pg (27.0-31.2); Mean Platelet Volume 8.3 fl (7.4-10.4); Monocytes # 0.9 K/mm3 (0.1-1.0); Neutrophils % 47.8 % (37.0-80.0); Platelet Count 372 K/mm3 (142-424); Red Blood Count 5.29 M/mm3 (4.60-6.20); Red Cell Distribution Width 12.6 % (11.5-17.5); White Blood Count 12.6 K/mm3 (4.8-10.8)
[2021-01-15 11:01] VITALS: BP 112/69; PULSE 109; O2SAT 96
[2021-01-15 11:02] LABS: Anion Gap 14.5 mEq/L (5-15); Blood Urea Nitrogen 13 mg/dl (9-20); Calcium 9.4 mg/dl (8.4-10.2); Carbon Dioxide 23 mmol/L (22.0-30.0); Chloride 100 mmol/L (98-107); Creatinine Clearance Estimated 118 mL/min (50-200); Estimated Glomerular Filt Rate 87 ml/min (>60); GFR (African American) 106 ML/MIN (>60); Glucose 335 mg/dl (74-100); Potassium 3.5 mmoL/L (3.5-5.1); Sodium 134 mmol/L (136-145)
--- NOTE | 2021-01-15 11:11 | PC.NURSE ---
Pt states that he is wasting our time and his time and wants to leave. Educated pt that sometimes with overdoses people can aspirate and told of the s/s to monitor for and to return to ER if this is noted. Pt is agreeable to this. IV is removed. MD aware
[2021-01-15 11:15] VITALS: BP 112/69; PULSE 96; RESP 20; TEMP 36.6; O2SAT 96
[2021-01-15 11:35] LABS: Ethyl Alcohol < 10 mg/dl (0-10); Troponin I < 0.01 ng/ml (0.00-0.034)
== END 2021-01-15 11:16 | disposition left against medical advice (07) ==
PROVIDERS: Emergency Provider Emergency Medicine
DX: T40.601A Poisoning by unspecified narcotics, accidental (unintentional), initial encounter (principal); F17.210 Nicotine dependence, cigarettes, uncomplicated
CPT/HCPCS: 80048; 84484; 85025; 93005; 99282